=== PATIENT | male | born 1950 | race Caucasian/White ===

== ENCOUNTER → 2018-02-24 | Outpatient (CLI) | payer MEDICARE ==
[2018-02-24 10:09] LABS: Basophils % (A) 0 %; Eosinophils % (A) 0 %; HCT 48.5 % (39.0-53.0); HGB 16.7 gm/dL (13.0-17.5); Lymphocytes # (A) 2.2 k/uL (1.0-4.8); Lymphocytes % (A) 22 %; MCH 31.2 pg (25.0-35.0); MCHC 34.5 g/dL (31.0-37.0); MCV 90.5 fL (80.0-100.0); Mean Platelet Volume 7.3; Monocytes # (A) 0.7 k/uL (0-1.0); Monocytes % (A) 7 %; Neutrophils # (A) 7.1 k/uL (1.3-7.7); Neutrophils % (A) 69 %; Platelet Count 292 k/uL (150-450); RBC 5.36 m/uL (4.30-5.90); RDW 13.9 % (11.5-15.5); WBC 10.3 k/uL (3.8-10.6)
[2018-02-24 10:12] LABS: Appearance,Urine Clear (Clear); Bilirubin,Urine Negative (Negative); Blood,Urine Negative (Negative); Color,Urine Yellow; Glucose,Urine (UA) Negative (Negative); Ketones,Urine Negative (Negative); Leukocyte Esterase,Urine Negative (Negative); Nitrite,Urine Negative (Negative); PH, Urine 6.5 (5.0-8.0); Protein,Urine 1+ (Negative); RBC,Urine 2 /hpf (0-5); Specific Gravity,Urine 1.016 (1.001-1.035); Squamous Epithelial Cell,Urine <1 /hpf (0-4); Urobilinogen,Urine <2.0 mg/dL (<2.0); WBC,Urine 1 /hpf (0-5)
[2018-02-24 10:27] LABS: ALT 44 U/L (21-72); AST 28 U/L (17-59); Albumin 4.3 g/dL (3.5-5.0); Alkaline Phosphatase 80 U/L (38-126); Anion Gap 16 mmol/L; Blood Urea Nitrogen 23 mg/dL (9-20); Carbon Dioxide 23 mmol/L (22-30); Chloride 100 mmol/L (98-107); Glucose 232 mg/dL (74-99); Potassium 4.2 mmol/L (3.5-5.1); Sodium 139 mmol/L (137-145); Total Bilirubin 0.7 mg/dL (0.2-1.3); Total Protein 7.7 g/dL (6.3-8.2)
== END | disposition home or self-care (01) ==
LOC: LABPAT 09:18
PROVIDERS: ATTEND Urology
DX: Z01.818 Encounter for other preprocedural examination (principal); R94.31 Abnormal electrocardiogram [ECG] [EKG]; N20.0 Calculus of kidney; E11.9 Type 2 diabetes mellitus without complications; R31.29 Other microscopic hematuria; I10 Essential (primary) hypertension; Z01.812 Encounter for preprocedural laboratory examination
CPT/HCPCS: 36415; 80053; 81001; 85025; 86850; 86900; 86901; 87086; 93005

== ENCOUNTER 2018-03-02 06:29 | Day surgery (SDC) | payer MEDICARE ==
[2018-02-25 13:20] VITALS: BMI 30.4
[~2018-03-02 06:29] MED LIST: ceFAZolin 1,000 MG in DEXTROSE/WATER 1 50ML.BAG IVPB ONE
[2018-03-02] MEDS ORDERED: DEXAMETHASONE SOD PHOSPHATE 10 MG/ML 1 ML VIAL IV ONE (06:56)
[2018-03-02] MEDS ORDERED: LIDOCAINE 1% 20 ML VIAL (10MG/ML) FOR IV START INTRADERMA PRN (06:56)
[2018-03-02] MEDS ORDERED: ONDANSETRON 4 MG/2 ML VIAL IVP ONE (06:56)
[2018-03-02] MEDS: LACTATED RINGERS 1,000 ML IV SCH (07:38)
[2018-03-02] MEDS ORDERED: ONDANSETRON 4 MG/2 ML VIAL ONE ×2 (07:43→08:29)
[2018-03-02 08:01] LABS: Glucose,Whole Blood 128 mg/dL (75-99)
--- NOTE | 2018-03-02 08:14 | XR ---
EXAMINATION TYPE: XR KUB DATE OF EXAM: 03/02/2018 COMPARISON: NONE INDICATION: Preop kidney stones TECHNIQUE: Single view abdomen supine view FINDINGS: There is a normal bowel gas pattern. Psoas margins are normal. No organomegaly is present. There is prior aneurysm repair with stent present. Multiple large calcifications are present on the left with larger stones measuring 1.7 x 1.2 cm and 2 .5 x 0.9 cm. There is small calcification over the mid right kidney measuring 0.6 cm. Interspersed wi th fecal debris a second right renal stone may be present measuring 1.4 x 2.1 cm. IMPRESSION: 1. Multiple bilateral large renal stones with larger stones commented on above. 2. Prior aneurysm repair with stent placement.
[2018-03-02] MEDS ORDERED: MIDAZOLAM 2 MG/2 ML VIAL ONE (08:29)
[2018-03-02] MEDS ORDERED: KETOROLAC 30 MG/ML 1 ML VIAL ONE (08:29)
[2018-03-02] MEDS ORDERED: fentaNYL (PF) 50 MCG/ML 2 ML AMP ONE (08:29)
[2018-03-02] MEDS ORDERED: NEOSTIGMINE 1 MG/ML 10 ML VIAL ONE (08:29)
[2018-03-02] MEDS ORDERED: ROCURONIUM BROMIDE 10 MG/ML 10 ML VIAL IV ONE (08:29)
[2018-03-02] MEDS ORDERED: GLYCOPYRROLATE 0.2 MG/ML 2 ML VIAL ONE (08:29)
[2018-03-02] MEDS ORDERED: LIDOCAINE 1% INJ 10MG/ML (20 ML MDV) ONE (08:29)
[2018-03-02] MEDS ORDERED: DEXAMETHASONE SOD PHOS (MDV) 100 MG/10 ML VIAL ONE (08:29)
[2018-03-02] MEDS ORDERED: SUCCINYLCHOLINE CHLORIDE VIAL 200 MG/10 ML VIAL IV ONE (08:29)
[2018-03-02] MEDS ORDERED: PROPOFOL 10 MG/ML 20 ML VIAL IV ONE (08:29)
[2018-03-02] MEDS ORDERED: IOHEXOL 350 MG/ML (PER ML) 100ML BTL MISCELLANE ONE ×2 (08:44)
[2018-03-02] MEDS ORDERED: ONDANSETRON 4 MG/2 ML VIAL IVP PRN (09:58)
[2018-03-02] MEDS ORDERED: ACETAMINOPHEN TAB 325 MG TAB PO PRN (09:58)
[2018-03-02] MEDS ORDERED: MAG HYDROX/AL HYDROX/SIMETH 30 ML CUP PO PRN (09:58)
[2018-03-02] MEDS ORDERED: HYDROmorphone PCA 5 MG/25 ML SYRINGE IV PRN (10:00)
[2018-03-02] MEDS ORDERED: NALOXONE 0.4 MG/ML 1 ML VIAL IV PRN (10:00)
[2018-03-02] MEDS ORDERED: KETOROLAC 30 MG/ML 1 ML VIAL IVP PRN (10:00)
--- NOTE | 2018-03-02 10:07 | P.OP ---
Date of Procedure: 03/02/18 Preoperative Diagnosis: left renal stones large Postoperative Diagnosis: Same Procedure(s) Performed: Cystoscopy, placement of occluding balloon catheter left, percutaneous nephrostomy (Dr. Escalera) percutaneous nephrostolithotomy with ultrasound, 10- Sammarinese J nephrostomy tube Anesthesia: DARIELA Surgeon: Danny Wasserman Estimated Blood Loss (ml): 50 Pathology: other (Stone) Condition: stable Disposition: PACU Indications for Procedure: The patient is a 67-year-old gentleman with a large volume of left renal stones (3 cm). He comes for percutaneous nephrostolithotomy Description of Procedure: The patient is brought to the operating suite. He is given a successful general endotracheal anesthesia on the transport gurpaxton. He's placed in a frog position with a sterile prep and drape. Cystoscopy with a Foroblique lens and 19-Sammarinese sheath identifies a normal urethra. The prostate is not obstructing. The left ureteral orifice is identified and intubated with a 5-Sammarinese occluding balloon catheter is passed up in the renal pelvis. It is secured to a 16-Sammarinese Wagner catheter The patient is placed in a prone position with care to airways and extremities. Dr. Escalera of radiology enters the suite and performed percutaneous access to the left lower pole calyx. The track was dilated to 30-Sammarinese. I introduced the rigid scope into the collecting system through the working sheath. Multiple small calyceal fragments are removed of the left lower pole calyx. A large stone in the left lower pole calyx is identified and broken with the ultrasound and the large fragments are removed. I advanced the scope into the left renal pelvis and identify a second large renal stone that is broken with ultrasound and the largest fragments are removed. End of the procedure the collecting system is totally inspected with the flexible nephroscope and there are no remaining stones. A nephrostogram shows no remaining stones. A 10- Sammarinese J nephrostomy tube was placed the patient's awakened and returned recovery room good condition. Blood loss is approximately 50 mL.
--- NOTE | 2018-03-02 10:19 | FL ---
EXAMINATION TYPE: FL Perc Nephrostomy New Access DATE OF EXAM: 03/02/2018 COMPARISON: CT scan from outside institution HISTORY: Hydronephrosis, ureteral obstruction with staghorn calculus. PROCEDURE: Maximal barrier technique was utilized. The skin overlying the left kidney was localized using fluor oscopy and the overlying skin prepped and draped. Lidocaine used for local anesthesia. Skin francis wa s made with a scalpel. Access was gained under fluoroscopy, following placement of a ureteral occlus ion balloon by the referring clinician and instillation of air in the renal collecting system with a 21-gauge needle to the kidney. A suitable posterior calyx was chosen at the lower pole. A 0.018 in ch wire was advanced. 0.035 inch angled Glidewire and angled catheter were exchanged to select the ur eter. The access site was dilated and subsequently a sheath was advanced into the renal pelvis follo wing dilation with balloon along the tract. Urine returned in the hub of the catheter. The patient un derwent nephrolithotomy by the referring clinician. The patient remained in stable condition withou t complication. The patient was discharged to observation. IMPRESSION: STATUS POST NEPHROSTOMY PLACEMENT FOR NEPHROLITHOTOMY WITH FLUOROSCOPIC GUIDANCE. THIS PROCEDURE PER FORMED BY THE UNDERSIGNED.
[2018-03-02] MEDS: MORPHINE SULFATE 2 MG/ML SYRINGE IV PRN ×4 (10:25→10:43)
[2018-03-02] MEDS ORDERED: diphenhydrAMINE 50 MG/ML 1 ML VIAL IVP ONE (10:32)
[2018-03-02 10:47] LABS: Glucose,Whole Blood 174 mg/dL (75-99)
[2018-03-02] MEDS ORDERED: MEPERIDINE 50 MG/ML SYRINGE IVP ONE (10:47)
[2018-03-02] MEDS: SODIUM CHLORIDE 0.45% 1,000 ML IV SCH (12:14)
[2018-03-02] MEDS: metFORMIN 500 MG TAB PO SCH (20:29)
[2018-03-02] MEDS ORDERED: ATORVASTATIN 20 MG TAB PO SCH (21:00)
[2018-03-03] MEDS: SODIUM CHLORIDE 0.45% 1,000 ML IV SCH ×2 (00:35→12:29)
--- NOTE | 2018-03-03 06:48 | P.PN ---
Subjective Progress Note Date: 03/03/18 The patient is in first postoperative day from a percutaneous nephrostolithotomy. Patient's pain has been moderate requiring a GENERATION MANAGER. He finally control and early this morning. His urine is cleared nicely. Vital signs are stable. I will remove his Wagner. He will ambulate. Continue to monitor his pain today he feels he isn't too much pain to be discharged home. Objective - Vital Signs Vital signs: Vital Signs Temp 97.5 F L 03/03/18 00:34 Pulse 75 03/03/18 00:34 Resp 16 03/03/18 00:34 BP 132/80 03/03/18 00:34 Pulse Ox 97 03/03/18 00:34 Intake & Output 03/02/18 03/02/18 03/03/18 06:59 18:59 06:59 Intake Total 1700 262.5 Output Total 460 2955 Balance 1240 -2692.5 Weight 96.162 kg Intake: IV 1700 Intake, IV Titration 262.5 Amount Sodium Chloride 0.45% 1, 262.5 000 ml @ 75 mls/hr IV . [id number] FORMERLY [facility], 1928–1983 Rx#:[id number] Output: Drainage 200 1430 Left flank 200 1430 Urine 250 1525 Estimated Blood Loss 10 Other: Voiding Method Indwelling Catheter Indwelling Catheter - Labs Labs: Abnormal Lab Results - Last 24 Hours (Table) 03/02/18 03/02/18 Range/Units 07:25 10:41 POC Glucose (mg/dL) 128 H 174 H (75-99) mg/dL
[2018-03-03 07:03] LABS: Glucose,Whole Blood 146 mg/dL (75-99)
[2018-03-03 07:11] VITALS: BP 167/88; PULSE 81; RESP 14; TEMP 97.7
[2018-03-03] MEDS: metFORMIN 500 MG TAB PO SCH (07:14)
[2018-03-03] MEDS ORDERED: [UNRECOGNIZED DRUG - OTHER] PO SCH (09:00)
[2018-03-03] MEDS ORDERED: METOPROLOL SUCCINATE (ER) 25 MG TAB.ER.24H PO SCH (09:00)
[2018-03-03] MEDS ORDERED: LOSARTAN PO SCH (09:00)
[2018-03-03] MEDS ORDERED: HYDROCHLOROTHIAZIDE PO SCH (09:00)
[2018-03-03] MEDS ORDERED: LOSARTAN 50 MG TAB PO SCH (09:00)
[2018-03-03] MEDS ORDERED: HYDROCHLOROTHIAZIDE 12.5 MG CAP PO SCH (09:00)
[2018-03-03] MEDS: LACTATED RINGERS 1,000 ML IV SCH (09:11)
[2018-03-03 11:47] LABS: Glucose,Whole Blood 141 mg/dL (75-99)
[2018-03-03 15:29] LABS: Hemoglobin A1C 7.1 % (4.0-6.0)
== END 2018-03-03 15:10 | disposition home or self-care (01) ==
LOC: OR 06:29 → 3SUR 09:50 → OR 03-03 15:10
PROVIDERS: ATTEND Urology
DX: N13.2 Hydronephrosis with renal and ureteral calculous obstruction (principal); I25.10 Atherosclerotic heart disease of native coronary artery without angina pectoris; I10 Essential (primary) hypertension; Z87.891 Personal history of nicotine dependence; E11.9 Type 2 diabetes mellitus without complications; Z79.4 Long term (current) use of insulin; Z87.442 Personal history of urinary calculi; E78.5 Hyperlipidemia, unspecified; I71.4 Abdominal aortic aneurysm, without rupture; Z82.49 Family history of ischemic heart disease and other diseases of the circulatory system; Z79.82 Long term (current) use of aspirin; Z79.899 Other long term (current) drug therapy
CPT/HCPCS: 50081; 74485; 94760; 82365; 83036; 50432; 74018; C1769 ×6; C2628; C1729 ×4; C1894; J2250; J0330; J1200; J1100 ×2; J2710; Q9967; J2175; J2405; J2001; J3010; J1885; J2270; J1170; J2704; 86850; 86900; 86901

== ENCOUNTER 2018-10-18 06:41 | Day surgery (SDC) | payer MEDICARE ==
[2018-10-17 14:30] VITALS: BMI 31.2
[~2018-10-18 06:41] MED LIST changes: +DEXAMETHASONE SOD PHOSPHATE 10 MG/ML 1 ML VIAL IV ONE; +HYDROmorphone 0.5 MG/0.5 ML SYRINGE IVP PRN; +LACTATED RINGERS 1,000 ML IV SCH; +LIDOCAINE 1% 20 ML VIAL (10MG/ML) FOR IV START INTRADERMA PRN; +ONDANSETRON 4 MG/2 ML VIAL IVP ONE; +SCOPOLAMINE 1.5MG/72HR PATCH TRANSDERM ONE; -ceFAZolin 1,000 MG in DEXTROSE/WATER 1 50ML.BAG IVPB ONE
[2018-10-18 07:21] VITALS: TEMP 97.7
[2018-10-18 07:23] LABS: Glucose,Whole Blood 198 mg/dL (75-99)
[2018-10-18] MEDS ORDERED: PROPOFOL 10 MG/ML 20 ML VIAL IV ONE (07:55)
[2018-10-18] MEDS ORDERED: LIDOCAINE 1% INJ 10MG/ML (20 ML MDV) ONE (07:55)
[2018-10-18 08:22] VITALS: RESP 16
--- NOTE | 2018-10-18 08:25 | P.PCN ---
Date of Procedure: 10/18/18 Procedure(s) Performed: Procedure: Total colonoscopy. Preoperative diagnosis: Screening for neoplasia. Postoperative diagnosis: Diverticulosis with no evidence of acute diverticulitis , strictures, polyps or cancer. Preparation: HalfLytely prep. Sedation: Was provided by anesthesia. Brief clinical history: The patient is a 68-year-old male who is scheduled for this evaluation for screening for neoplasia age being his risk factor. His prior exam may have been around 9 years ago. The patient has no abdominal complaints, bleeding or anemia. Procedure: With the patient on his left lateral decubitus position and after informed consent and adequate sedation, the perianal area was inspected and it did not show any fissures or fistulas. There were no masses felt on digital rectal examination. The Olympus CFH 190L video colonoscope was then inserted in the rectum in the usual fashion and advanced to the cecum. The mucosa appeared healthy. No polyps or tumors were seen. Several diverticular orifices were seen scattered on both the left and right side with no evidence of acute diverticulitis or strictures. I retroflexed the endoscope in the rectum before the endoscope was withdrawn. The patient tolerated the procedure well. Plan: The patient was reassured. Discussed dietary measures. He will follow up with you as planned and I recommended repeat exam in 10 years depending on his overall health at that time.
[2018-10-18 08:30] VITALS: BP 131/79; PULSE 69
[2018-10-18 08:34] LABS: Glucose,Whole Blood 183 mg/dL (75-99)
== END 2018-10-18 09:01 | disposition home or self-care (01) ==
LOC: ORWHC2ENDO 06:41
DX: Z12.11 Encounter for screening for malignant neoplasm of colon (principal); K57.30 Diverticulosis of large intestine without perforation or abscess without bleeding; E11.9 Type 2 diabetes mellitus without complications; I10 Essential (primary) hypertension; E78.5 Hyperlipidemia, unspecified; M19.90 Unspecified osteoarthritis, unspecified site; N40.0 Benign prostatic hyperplasia without lower urinary tract symptoms; Z79.82 Long term (current) use of aspirin; Z79.899 Other long term (current) drug therapy; Z88.8 Allergy status to other drugs, medicaments and biological substances; Z91.048 Other nonmedicinal substance allergy status; Z86.718 Personal history of other venous thrombosis and embolism; Z87.442 Personal history of urinary calculi
CPT/HCPCS: J2001; J2704; G0121

== ENCOUNTER → 2019-08-24 | Outpatient (CLI) | payer MEDICARE ==
--- NOTE | 2019-08-24 09:33 | US ---
EXAMINATION TYPE: US scrotum with doppler. Grayscale and color Doppler Duplex imaging performed of martha varela scrotum. DATE OF EXAM: 08/24/2019 COMPARISON: NONE CLINICAL HISTORY: N50.82 SCROTAL PAIN. Left side pain and swelling. Patient states he was trying to removed a bolt over the weekend and strained himself. EXAM MEASUREMENTS: TESTICLES: Right Testicle: 4.9 x 3.0 x 2.9 cm Left Testicle: 3.4 x 3.0 x 3.7 cm EPIDIDYMIS HEAD: Right Epididymis: 1.1 x 0.9 x 0.8 cm Left Epididymis: 0.9 x 1.0 x 1.1 cm Doppler performed to assess for testicular vascularity; good bilateral color flow and waveforms are s een. There is no evidence of testicular torsion. Presence of hydroceles: Small to Moderate left with debris visualized. Presence of varicoceles: No Left lateral complex lesion visualized adjacent to epididymis and teste, unable to accurately determi ne origin - 2.2 x 2.6 x 2.5 cm. Left groin visualized with possible inguinal hernia- valsalva perform ed. Color images show satisfactory blood flow to both testicles. There is asymmetric fairly moderate-size d left scrotal fluid collection or hydrocele. Left groin hernia suspected superior to the testicle. C omparison images were sent the study shows symmetric blood flow. IMPRESSION: Asymmetric moderate-sized left scrotal fluid collection or hydrocele. Suspect left groin inguinal hernia. Consider CT confirmation. Advise surgical referral.
== END | disposition home or self-care (01) ==
LOC: RADUSWWP 08:14
PROVIDERS: ATTEND Family Medicine
DX: N50.82 Scrotal pain (principal)
CPT/HCPCS: 76870; 93975

== ENCOUNTER → 2019-08-30 | Outpatient (CLI) | payer MEDICARE ==
[2019-08-30 09:56] LABS: African American GFR (CKD) >90 (>60 ml/min/1.73 sqM); Blood Urea Nitrogen 19 mg/dL (9-20)
--- NOTE | 2019-08-30 11:24 | CT ---
"EXAMINATION TYPE: CT pelvis w con DATE OF EXAM: 08/30/2019 COMPARISON: CT abdomen and pelvis June 02, 2011. Scrotal ultrasound 6 days ago. HISTORY: Lt groin hernia. Left scrotal and groin pain. CT DLP: 1042.7 mGycm Automated exposure control for dose reduction was used. CONTRAST: CT pelvis Performed with oral and with IV Contrast, patient injected with 100 mL of Isovue 300. FINDINGS: Partial visualization of renal calculi mid to lower pole of both kidneys with relatively roughly 3-4 calculi bilaterally, largest left kidney, coronal image 35 measuring 6 mm. Satisfactory excretion wit hout hydronephrosis. No intraluminal calculi in the bladder. Oral contrast reaches level of the mid to distal left colon. No suspicious small or large bowel dilat ation. Diverticula in the sigmoid colon without CT evidence for acute diverticulitis. There is aortobiiliac stent graft which is patent through AAA measuring up to 5.0 cm axial image 15. 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 There is patent bifemoral gr aft. Surgical scarring anterior groin region bilaterally. Small fat-containing right inguinal hernia. No left-sided hernia. No suspicious groin adenopathy. Redemonstration of small to moderate-sized left scrotal fluid collection or hydrocele. Incidental inc reased hyperdensity to left testicle versus opposite right testicle as well as left-sided epididymis. Hyperdense tubular shaped structure superior to this correlates with ultrasound could reflect epidid ymal prominence or prominent vas deferens. IMPRESSION: Increased hyperdense prominence to left testicle and epididymis could reflect increased v ascular flow or acute epididymitis/orchitis. Correlate clinically. No suspicious left groin hernia or adenopathy. A Yellow level critical message alert has been initiated for Farideh Howe DO via the [employer] 36 0 | Critical Results System on 08/30/2019 11:19 AM. This message alert has been sent to Farideh teixeira DO via the preferences provided by the clinician for the receipt of Radiology Critical Findings. Reece essage ID [id number]."
== END | disposition home or self-care (01) ==
LOC: RADCTMAIN 07:44
PROVIDERS: ATTEND Family Medicine
DX: R93.89 Abnormal findings on diagnostic imaging of other specified body structures (principal); N50.82 Scrotal pain
CPT/HCPCS: 82565; 84520; 72193; 36415; Q9967 ×2

== ENCOUNTER → 2020-09-30 | Outpatient (CLI) | payer MEDICARE ==
[2020-09-30 11:32] VITALS: BP 162/96; PULSE 85; RESP 18; TEMP 98.4
--- NOTE | 2020-09-30 12:18 | P.PAINCN ---
History of Present Illness - Reason for Consult Consult date: 09/30/20 - History of Present Illness This is a 70-year-old patient with neck pain with radiation into the shoulders. The patient Dr. Hernandez'vazqeuz. His primary complaint is bilateral neck pain with occasional radiation into the shoulder. Since the pain is described as sharp and stabbing only alleviated by sitting down and relaxing. Pain in general is worse with movement or lifting. Overall he does not endorse any weakness in his upper extremities. Pain is currently a 9 out of 10, at its worst a 10 out of 10, at its best a 5 out of 10. In terms of management he has tried Biofreeze, heat, and physical therapy but these did not help very much. He recently had some type of medial branch block in June 2020 which helped for 1-5 days. He is also had an ACDF of C4 through C7 in 2009. This to help with this pain back then, however his pain is now come back and he would like to avoid surgery. He is also mention that he has had ablations in his lumbar spine, however he does not have any records of these. Patient denies adverse drug effects from medications. Patient also denies new- onset weakness, bowel/bladder incontinence, or any other signs or symptoms of cauda equina syndrome. There are no signs of acute intoxication, and no indications of medication diversion or overuse. In addition to above, 13-point review of systems is also negative for chest pain, shortness of breath, changes in vision, changes in hearing, new onset weakness, abdominal pain, diarrhea, extreme fatigue, malaise, fever, skin changes, homicidal or suicidal ideation, or bowel or bladder incontinence. Physical exam: Vital Signs: Reviewed in EMR GENERAL: Well appearing, in no acute distress PSYCH: Mood and affect is appropriate. Awake, alert, and oriented SKIN: Skin color, texture, turgor normal, no rashes or lesions HEENT: Normocephalic, atraumatic. EOM intact CV: No pedal edema RESP: Respirations are unlabored, no audible wheezing GI: Abdomen non-distended MUSCULOSKELETAL: Bilateral upper and lower extremity strength is normal and symmetric. No atrophy or tone abnormalities are noted. Neck: pain to palpation over the cervical paraspinous muscles. Spurling negative, Axial Loading Test positive, Childs's sign negative. pain with neck flexion, extension, or lateral flexion. No obvious deformity or signs of trauma. Normal cervical lordotic curve and decreased cervical spine range of motion Extremities: Peripheral joint ROM is full and pain free without obvious instability or laxity in all four extremities. No edema or skin discolorations noted. Gait: Gait is normal NEUR: Bilateral upper and lower extremity coordination and muscle stretch reflexes are physiologic and symmetric. Negative clonus. No loss of sensation is noted. Cranial nerves are grossly intact. Assessment: 1. Cervical facet arthropathy 2. Lumbar facet arthropathy Plan: 1. Explanation: Diagnoses, prognoses, and multiple treatment options including but not limited to physical therapy, interventional therapies, medication management and surgery were discussed with the patient and all questions were answered to the patient's satisfaction. 2. Investigations: none 3. Counseling: The patient was counseled for 3 minutes on SMOKING CESSATION, BODY MASS INDEX, EXERCISE. Specifically, the patient was instructed regarding the importance of smoking cessation, weight control, and exercise in the context of both chronic pain and overall health. 4. Procedures: We will proceed with medial branch block of C2-C3 and C3-C4, I'm unsure what O Michaela Hernandez, however given that he is a fusion from C4 through C7 is unlikely that anatomically we would able to see anything at those levels. 5. Consultations: none 6. Medications: Continue home tylenol 7. Disposition: bilateral MBB C2-C3 and C3-C4 Past Medical History Past Medical History: Diabetes Mellitus, Deep Vein Thrombosis (DVT), Hearing Disorder / Deafness, Hyperlipidemia, Hypertension, Osteoarthritis (OA) Additional Past Medical History / Comment(s): Hx kidney stones, aortic anerysym with sx, calcium deposits on pancreas History of Any Multi-Drug Resistant Organisms: None Reported Past Surgical History: Cholecystectomy, Orthopedic Surgery Additional Past Surgical History / Comment(s): Surgery for Aortic anerysym with stent placement and femoral bypass surgery with stent placement 01/2015. Neck fusion, tube placed in right ear. Orthopedic surgery to right knee. lithotripsy, sx to remove kidney stones 2017, had one procedure @ [facility] to "burn nerves" Past Anesthesia/Blood Transfusion Reactions: No Reported Reaction Past Psychological History: No Psychological Hx Reported Smoking Status: Former smoker Past Alcohol Use History: Occasional Additional Past Alcohol Use History / Comment(s): Smoked 1 PPD for 35-40 yrs, quit in 2014 Past Drug Use History: None Reported - Past Family History Mother Family Medical History: Cancer Additional Family Medical History / Comment(s): Breast cancer Medications and Allergies Home Medications Medication Instructions Recorded Confirmed Type Aspirin [Adult Low Dose Aspirin EC] 81 mg PO DAILY 01/22/17 09/27/20 History Metoprolol Succinate (ER) [Toprol 25 mg PO QAM 01/22/17 09/27/20 History Xl] Multivitamin [Men's Multi-Vitamin] 1 each PO DAILY 01/22/17 09/27/20 History Losartan/Hydrochlorothiazide 1 each PO QAM 02/25/18 09/27/20 History [Losartan-Hctz 100-12.5 mg Tab] Rosuvastatin [Crestor] 10 mg PO DAILY 10/17/18 09/27/20 History sitaGLIPtin PHOSPHATE [Januvia] 100 mg PO DAILY 10/17/18 09/27/20 History Acetaminophen [Tylenol Arthritis] 650 mg PO DIRECTED PRN 09/27/20 09/27/20 History Empagliflozin [Jardiance] 25 mg PO DAILY 09/27/20 09/27/20 History Allergies Allergy/AdvReac Type Severity Reaction Status Date / Time adhesive tape Allergy rash,weeping Verified 09/30/20 11:38 skin metformin Allergy abdominal Verified 09/30/20 11:38 cramping and diarrhea simvastatin [From Zocor] Allergy severe leg Verified 09/30/20 11:38 pain fenofibrate AdvReac diarrhea, Verified 09/30/20 11:38 severe aches gabapentin AdvReac diarrhea,severe Verified 09/30/20 11:38 aches cats Allergy sneezing,coughing,itchy/watery Uncoded 09/30/20 11:38 eyes PQRS Measure Charge Sheet PQRS Narrative: Smoking Status Former smoker Pain Intensity [Back] 2 Scale Used Numeric (1 - 10) Home Medications: Ambulatory Orders Aspirin [Adult Low Dose Aspirin EC] 81 mg PO DAILY 01/22/17 Metoprolol Succinate (ER) [Toprol Xl] 25 mg PO QAM 01/22/17 Multivitamin [Men's Multi-Vitamin] 1 each PO DAILY 01/22/17 Losartan/Hydrochlorothiazide [Losartan-Hctz 100-12.5 mg Tab] 1 each PO QAM 02/25/18 Rosuvastatin [Crestor] 10 mg PO DAILY 10/17/18 sitaGLIPtin PHOSPHATE [Januvia] 100 mg PO DAILY 10/17/18 Acetaminophen [Tylenol Arthritis] 650 mg PO DIRECTED PRN 09/27/20 Empagliflozin [Jardiance] 25 mg PO DAILY 09/27/20
== END | disposition home or self-care (01) ==
LOC: PNWHC3 11:03
PROVIDERS: ATTEND Anesthesiology
DX: M47.892 Other spondylosis, cervical region (principal); M47.896 Other spondylosis, lumbar region; E11.9 Type 2 diabetes mellitus without complications; E78.5 Hyperlipidemia, unspecified; I10 Essential (primary) hypertension; M19.90 Unspecified osteoarthritis, unspecified site; I82.409 Acute embolism and thrombosis of unspecified deep veins of unspecified lower extremity; Z79.899 Other long term (current) drug therapy; Z79.82 Long term (current) use of aspirin; Z79.891 Long term (current) use of opiate analgesic; Z88.8 Allergy status to other drugs, medicaments and biological substances; Z91.09 Other allergy status, other than to drugs and biological substances; Z88.5 Allergy status to narcotic agent; Z87.891 Personal history of nicotine dependence
CPT/HCPCS: 99211

== ENCOUNTER 2021-01-03 07:39 | Day surgery (SDC) | payer MEDICARE ==
[2021-01-01 08:56] VITALS: BMI 31.8
[~2021-01-03 07:39] MED LIST changes: -DEXAMETHASONE SOD PHOSPHATE 10 MG/ML 1 ML VIAL IV ONE; -HYDROmorphone 0.5 MG/0.5 ML SYRINGE IVP PRN; -LIDOCAINE 1% 20 ML VIAL (10MG/ML) FOR IV START INTRADERMA PRN; -ONDANSETRON 4 MG/2 ML VIAL IVP ONE; -SCOPOLAMINE 1.5MG/72HR PATCH TRANSDERM ONE
[2021-01-03 07:56] VITALS: TEMP 97.2
[2021-01-03] MEDS ORDERED: LACTATED RINGERS 1,000 ML IV ONE (08:02)
[2021-01-03] MEDS ORDERED: IV FLUID CONTINUATION 1,000 ML IV ONE (08:02)
[2021-01-03 08:05] LABS: Glucose,Whole Blood 155 mg/dL (75-99)
[2021-01-03] MEDS ORDERED: MIDAZOLAM 2 MG/2 ML VIAL ONE (08:11)
[2021-01-03] MEDS ORDERED: IOPAMIDOL M200 10 ML VIAL ONE (08:11)
[2021-01-03] MEDS ORDERED: ROPIVACAINE 5MG/ML 20ML VIAL ONE (08:11)
[2021-01-03] MEDS ORDERED: TRIAMCINOLONE ACETONIDE 40 MG/ML 1 ML VIAL ONE (08:11)
[2021-01-03] MEDS ORDERED: fentaNYL (PF) 50 MCG/ML 2 ML AMP ONE (08:11)
--- NOTE | 2021-01-03 08:32 | P.PCN ---
Date of Procedure: 01/03/21 Description of Procedure: PREOPERATIVE DIAGNOSIS : Cervicalgia with Facet Arthropathy without myelopathy POSTOPERATIVE DIAGNOSIS: same PROCEDURE: first Diagnostic cervical medial branch block with fluoroscopy at TON, C3, C4 [bilateral] which covers facets C2-C3 and C3-C4 ANESTHESIA: Local anesthetic; moderate IV sedation with Versed and fentanyl, sedation time 13 min Fluoroscopy was used for the procedure and images were saved in the radiology portion of the chart. Surgeon: Andre Lee MD PROCEDURE INDICATION: Cervical pain without radiculopathy, not responsive to conservative management. PROCEDURE DESCRIPTION: the patient was seen and identified in the preop holding area , risks and benefits and possible complications of the procedure and alternatives were discussed with the patient, and the patient agreed to proceed with the procedure and signed the consent . IV was started , vital signs were monitored during the procedure and fluoroscopy was used to maximize the benefit and accuracy of the needle placement, and sedation was given to decrease patient anxiety. Patient was taken to the procedure room and placed in prone position. An AP fluoroscopic rn documentation specialist film was taken to identify the dens, the C2, C3, C4 vertebral bodies, and the waists of the articular pillars at the aforementioned levels. A lateral view was utilized to highlight the waists of the articular pillars at these levels. The skin was prepped with chlorhexidine and draped in the usual sterile fashion. The skin and subcutaneous tissue overlying the above levels were anesthetized using a 25-gauge 1-1/2-inch needle with 1% preservative free lidocaine for a total volume of 1 ml per level. An AP fluoroscopic rn documentation specialist film was taken to identify the dens, the C2 C3 C4 vertebral bodies, and the center of the centroid at the aforementioned levels. A lateral view was utilized to highlight the centroids at these levels. The skin was prepped with chlorhexidine and draped in the usual sterile fashion. The skin and subcutaneous tissue overlying the above levels were anesthetized using a 25-gauge 1-1/2-inch needle with 1% preservative free lidocaine for a total volume of 1 ml per level. An 25-gauge 3.5" Quinke needle was advanced, coaxially, in the lateral view until the needle tip was noted to slide into the center of the centroid. The needles were advanced until bony contact was felt and the tip of the Quinke needle was confirmed to be in the center of the articular pillars at the aforementioned levels. For TON and C3, there was adequate contrast spread with one injection, hence i was able to cover both nerves with one injection bilaterally. 0.2 mL of Isovue 200 per level was injected which revealed no vascular uptake and after negative aspiration, a mixture 0.5 mL of ropivacaine along with Kenalog 40 mg (injectate total for the procedure was 4 mL) was injected at each level and the needle subsequently removed . Total of 40 mg kenalog used. At the end of the procedure and the needles were removed and a bandage applied after the skin was cleaned. The patient was taken to recovery room in stable condition and monitors in the recovery room for 20-30 minutes and discharged home in stable condition after discharge criteria met and patient will follow up in clinic in 2 weeks EBL: Minimal COMPLICATION: None.
[2021-01-03 09:01] VITALS: BP 118/74; PULSE 84; RESP 16
--- NOTE | 2021-01-03 14:28 | FL ---
Fluoroscopy INDICATION: Pain FINDINGS: Fluoroscopy time: 9 seconds. Images obtained: 4. IMPRESSIONS: 1. Documentation of fluoroscopy.
== END 2021-01-03 09:07 | disposition home or self-care (01) ==
LOC: ORPAIN 07:39
PROVIDERS: ATTEND Anesthesiology
DX: M47.812 Spondylosis without myelopathy or radiculopathy, cervical region (principal); I10 Essential (primary) hypertension; E78.5 Hyperlipidemia, unspecified; I73.9 Peripheral vascular disease, unspecified; E11.9 Type 2 diabetes mellitus without complications; Z86.718 Personal history of other venous thrombosis and embolism; Z91.048 Other nonmedicinal substance allergy status; Z88.8 Allergy status to other drugs, medicaments and biological substances; M19.90 Unspecified osteoarthritis, unspecified site; Z79.82 Long term (current) use of aspirin; Z79.84 Long term (current) use of oral hypoglycemic drugs; Z79.899 Other long term (current) drug therapy
CPT/HCPCS: 64490; 64491; J2250; J3301; J3010; Q9966; J2795; 99152

== ENCOUNTER → 2021-01-22 | Outpatient (CLI) | payer MEDICARE ==
--- NOTE | 2021-01-22 09:40 | P.PAINPG ---
Subjective Progress Note Date: 01/22/21 This is a 70-year-old patient with neck pain with radiation into the shoulders. The patient Dr. Hernandez's past patient. His primary complaint is bilateral neck pain with occasional radiation into the shoulder. Since the pain is described as sharp and stabbing only alleviated by sitting down and relaxing. Pain in general is worse with movement or lifting. Overall he does not endorse any weakness in his upper extremities. Pain is currently a 9 out of 10, at its worst a 10 out of 10, at its best a 5 out of 10. In terms of management he has tried Biofreeze, heat, and physical therapy but these did not help very much. He recently had some type of medial branch block in June 2020 which helped for 1-5 days. He is also had an ACDF of C4 through C7 in 2009. He is also mention that he has had ablations in his lumbar spine, however he does not have any records of these.We proceeded with TON, C3, C4 MBB bilaterally. He notes that he had 100% relief from the last procedure for about 2-3 days. He noticed that his functionality was significantly improved and he was able to show also no without any issue. Pain has returned and is in the same region currently a 5 out of 10, at its worst a 9 out of 10, at best a 4 out of 10. He is just using ice and heat at this moment and would like to repeat the medial branch block. He is familiar with the concept radiofrequency ablation as he had them on his back in the past. Patient denies adverse drug effects from medications. Patient also denies new- onset weakness, bowel/bladder incontinence, or any other signs or symptoms of cauda equina syndrome. There are no signs of acute intoxication, and no indications of medication diversion or overuse. In addition to above, 13-point review of systems is also negative for chest pain, shortness of breath, changes in vision, changes in hearing, new onset weakness, abdominal pain, diarrhea, extreme fatigue, malaise, fever, skin changes, homicidal or suicidal ideation, or bowel or bladder incontinence. Physical exam: Vital Signs: Reviewed in EMR GENERAL: Well appearing, in no acute distress PSYCH: Mood and affect is appropriate. Awake, alert, and oriented SKIN: Skin color, texture, turgor normal, no rashes or lesions HEENT: Normocephalic, atraumatic. EOM intact CV: No pedal edema RESP: Respirations are unlabored, no audible wheezing GI: Abdomen non-distended MUSCULOSKELETAL: Bilateral upper and lower extremity strength is normal and symmetric. No atrophy or tone abnormalities are noted. Neck: pain to palpation over the cervical paraspinous muscles. Spurling negative, Axial Loading Test positive, Childs's sign negative. pain with neck flexion, extension, or lateral flexion. No obvious deformity or signs of trauma. Normal cervical lordotic curve and decreased cervical spine range of motion Extremities: Peripheral joint ROM is full and pain free without obvious instability or laxity in all four extremities. No edema or skin discolorations noted. Gait: Gait is normal NEUR: Bilateral upper and lower extremity coordination and muscle stretch reflexes are physiologic and symmetric. Negative clonus. No loss of sensation is noted. Cranial nerves are grossly intact. Assessment: 1. Cervical facet arthropathy 2. Lumbar facet arthropathy Plan: 1. Explanation: Diagnoses, prognoses, and multiple treatment options including but not limited to physical therapy, interventional therapies, medication management and surgery were discussed with the patient and all questions were answered to the patient's satisfaction. 2. Investigations: none 3. Counseling: We did discuss the concept of repeating medial branch blocks and proceed with radiofrequency ablation. 4. Procedures: We will proceed with medial branch block of C2-C3 and C3-C4. #2 5. Consultations: none 6. Medications: Continue home tylenol 7. Disposition: bilateral MBB C2-C3 and C3-C4 PQRS Measure Charge Sheet PQRS Narrative: Smoking Status Former smoker Pain Intensity [Generalized] 0 Hx Alcohol Use (MH) No Home Medications: Ambulatory Orders Aspirin [Adult Low Dose Aspirin EC] 81 mg PO DAILY 01/22/17 Metoprolol Succinate (ER) [Toprol Xl] 25 mg PO QAM 01/22/17 Multivitamin [Men's Multi-Vitamin] 1 each PO DAILY 01/22/17 Losartan/Hydrochlorothiazide [Losartan-Hctz 100-12.5 mg Tab] 1 each PO QAM 02/25/18 Rosuvastatin [Crestor] 10 mg PO DAILY 10/17/18 sitaGLIPtin PHOSPHATE [Januvia] 100 mg PO DAILY 10/17/18 Acetaminophen [Tylenol Arthritis] 650 mg PO DIRECTED PRN 09/27/20 Empagliflozin [Jardiance] 25 mg PO DAILY 09/27/20 Controlled Substance Measures - Controlled Substance Measures Is patient prescribed a controlled substance at discharge?: No
== END ==
CPT/HCPCS: 99211

== ENCOUNTER 2021-02-28 08:22 | Day surgery (SDC) | payer MEDICARE ==
[2021-02-26 15:32] VITALS: BMI 31.2
[2021-02-28 08:50] VITALS: TEMP 98.5
[2021-02-28 08:55] LABS: Glucose,Whole Blood 151 mg/dL (75-99)
[2021-02-28] MEDS ORDERED: LACTATED RINGERS 1,000 ML IV ONE (09:04)
[2021-02-28] MEDS ORDERED: LIDOCAINE 1% (10MG/ML) FOR IV START INTRADERMA ONE (09:05)
[2021-02-28] MEDS ORDERED: ROPIVACAINE 5MG/ML 20ML VIAL ONE (09:35)
[2021-02-28] MEDS ORDERED: IOPAMIDOL M200 10 ML VIAL ONE (09:35)
[2021-02-28] MEDS ORDERED: DEXAMETHASONE SOD PHOSPHATE 10 MG/ML 1 ML VIAL ONE (09:35)
[2021-02-28] MEDS ORDERED: MIDAZOLAM 2 MG/2 ML VIAL ONE (09:36)
[2021-02-28] MEDS ORDERED: fentaNYL (PF) 50 MCG/ML 2 ML AMP ONE (09:36)
--- NOTE | 2021-02-28 09:49 | P.PCN ---
Date of Procedure: 02/28/21 Description of Procedure: PREOPERATIVE DIAGNOSIS : Cervicalgia with Facet Arthropathy without myelopathy POSTOPERATIVE DIAGNOSIS: same PROCEDURE: first Diagnostic cervical medial branch block with fluoroscopy at TON, C3, C4 [bilateral] which covers facets C2-C3 and C3-C4 #2 ANESTHESIA: Local anesthetic; moderate IV sedation with Versed and fentanyl, Fluoroscopy was used for the procedure and images were saved in the radiology portion of the chart. Surgeon: Andre Lee MD PROCEDURE INDICATION: Cervical pain without radiculopathy, not responsive to conservative management. PROCEDURE DESCRIPTION: the patient was seen and identified in the preop holding area , risks and benefits and possible complications of the procedure and alternatives were discussed with the patient, and the patient agreed to proceed with the procedure and signed the consent . IV was started , vital signs were monitored during the procedure and fluoroscopy was used to maximize the benefit and accuracy of the needle placement, and sedation was given to decrease patient anxiety. Patient was taken to the procedure room and placed in prone position. An AP fluoroscopic sheet ironworker film was taken to identify the dens, the C2, C3, C4 vertebral bodies, and the waists of the articular pillars at the aforementioned levels. A lateral view was utilized to highlight the waists of the articular pillars at these levels. The skin was prepped with chlorhexidine and draped in the usual sterile fashion. The skin and subcutaneous tissue overlying the above levels were anesthetized using a 25-gauge 1-1/2-inch needle with 1% preservative free lidocaine for a total volume of 1 ml per level. An AP fluoroscopic sheet ironworker film was taken to identify the dens, the C2 C3 C4 vertebral bodies, and the center of the centroid at the aforementioned levels. A lateral view was utilized to highlight the centroids at these levels. The skin was prepped with chlorhexidine and draped in the usual sterile fashion. The skin and subcutaneous tissue overlying the above levels were anesthetized using a 25-gauge 1-1/2-inch needle with 1% preservative free lidocaine for a total volume of 1 ml per level. An 25-gauge 3.5" Quinke needle was advanced, coaxially, in the lateral view until the needle tip was noted to slide into the center of the centroid. The needles were advanced until bony contact was felt and the tip of the Quinke needle was confirmed to be in the center of the articular pillars at the aforementioned levels. For TON and C3, there was adequate contrast spread with one injection, hence i was able to cover both nerves with one injection bilaterally. 0.2 mL of Isovue 200 per level was injected which revealed no vascular uptake and after negative aspiration, a mixture 0.5 mL of ropivacaine along with Kenalog 40 mg (injectate total for the procedure was 4 mL) was injected at each level and the needle subsequently removed . Total of 40 mg kenalog used. At the end of the procedure and the needles were removed and a bandage applied after the skin was cleaned. The patient was taken to recovery room in stable condition and monitors in the recovery room for 20-30 minutes and discharged home in stable condition after discharge criteria met and patient will follow up in clinic in 2 weeks EBL: Minimal COMPLICATION: None.
[2021-02-28] MEDS ORDERED: IV FLUID CONTINUATION 1,000 ML IV ONE (09:55)
[2021-02-28 10:15] VITALS: BP 136/69; PULSE 80; RESP 16
--- NOTE | 2021-03-02 16:47 | FL ---
EXAMINATION TYPE: FL guided pain mgmt statistic DATE OF EXAM: 02/28/2021 FLUOROSCOPY Fluoroscopy time of 8 seconds was used during cervical spine facet block injection. 3 image/s docume nt/s the procedure.
== END 2021-02-28 10:24 | disposition home or self-care (01) ==
LOC: ORPAIN 08:22
PROVIDERS: ATTEND Anesthesiology
DX: M47.812 Spondylosis without myelopathy or radiculopathy, cervical region (principal); I10 Essential (primary) hypertension; E78.5 Hyperlipidemia, unspecified; Z86.718 Personal history of other venous thrombosis and embolism; E11.9 Type 2 diabetes mellitus without complications; M19.90 Unspecified osteoarthritis, unspecified site; F32.9 Major depressive disorder, single episode, unspecified; Z79.84 Long term (current) use of oral hypoglycemic drugs; Z79.82 Long term (current) use of aspirin; Z79.899 Other long term (current) drug therapy; Z88.8 Allergy status to other drugs, medicaments and biological substances; Z91.048 Other nonmedicinal substance allergy status; Z91.09 Other allergy status, other than to drugs and biological substances
CPT/HCPCS: 64490; 64491; J2250; J1100; J3010; Q9966; J2795

== ENCOUNTER → 2021-03-17 | Outpatient (CLI) | payer MEDICARE ==
[2021-03-17 10:25] VITALS: BP 145/78; PULSE 83; RESP 18; TEMP 97.7
--- NOTE | 2021-03-17 10:30 | P.PN ---
Subjective Progress Note Date: 03/17/21 This is a follow-up visit for this 70 years old male with a chronic history of severe neck pain and low back pain, he is diagnosed with cervical spondylosis, cervical facet arthropathy and lumbar spondylosis with lumbar facet arthropathy, previously he had RFA of the medial branch lumbar area at L2, L3 ,L4 ,L5 was done at [facility], and he gets good pain relief, recently we have done diagnostic medial branch block cervical area at C2 3, C3 4, x2 , patient did 100% relief of his neck pain after the first diagnostic block his VAS was 3- 4/10 to the block and dropped to 0/10 after the block, and his VAS before the second diagnostic medial branch block was 5/10, up to 1/10 after the second diagnostic medial branch block, the pain in the cervical area is constant and increases with any activity, as any motor or sensory deficit he denies any fever or night sweats Objective - Exam Physical Examinations : -Constitutiona : Cooperative , not in acute distress . -HEENT : nech : supple , no Lymphadenopathy , normal thyroid size . : eyes : no ptosis , no icterus, no photophobia . - neurologic : Cranial nerve II to XII intact , no focal neurological deffecit . -psychatric : alert , oriented X 3 , appropriate affect , intact judgment and insight . -Lymphatic : no Lymphadenopathy . - musculoskeltal : Cervical Spine motor stregnth in the deltoid and biceps, normal right side , normal Left side motor stregnth biceps and the wrist extensors normal right side ,normal left side . motor stregnth in the triceps muscle . normal Right side , normal Left side deep tendon reflexes normal at the biceps , normal at Brachioradialis , normal at triceps. cervical facet loading test: Positive Bilaterally Lumber spine moter stegnth lower extremities ,thigh and legs 5/5 Right side , 5/5 Left side deep tendon reflexes : normal Knee Jerk , normal ankle Jerk lumber facet Loading Test =positive Right , positive Left Range of motion of the lumbar spine Flexion 30 degrees, extension 10 degrees strait leg raising test = positive at 45 degree Fabere test= positive Right , and positive LT . tenderness over the Sacroiliac joint on the Right , and Left sides Assessment and Plan Plan: Assessment and plan=1-cervical spondylosis with cervical facet arthropathy 2-lumbar spondylosis with lumbar facet arthropathy. Patient gets more than 80% improvement of his neck pain after the diagnostic medial branch block cervical area, would be good candidate RFA of the medial branch at C2 3, C3 4 bilaterally. Future patient could benefit from repeate RFA medial branch lumbar area L3,L4 ,L5 bilaterally Time with Patient: Less than 30
== END ==
LOC: PNWHC3 09:31
PROVIDERS: ATTEND Specialist
DX: M47.812 Spondylosis without myelopathy or radiculopathy, cervical region (principal); M47.816 Spondylosis without myelopathy or radiculopathy, lumbar region; Z87.891 Personal history of nicotine dependence
CPT/HCPCS: 99211

== ENCOUNTER 2021-04-18 07:12 | Day surgery (SDC) | payer MEDICARE ==
[2021-04-17 10:57] VITALS: BMI 31.5
[2021-04-18] MEDS ORDERED: LIDOCAINE 1% (10MG/ML) FOR IV START INTRADERMA ONE (07:50)
[2021-04-18] MEDS ORDERED: LACTATED RINGERS 1,000 ML IV ONE (07:50)
[2021-04-18 07:53] VITALS: RESP 16; TEMP 97.5
[2021-04-18 07:53] LABS: Glucose,Whole Blood 147 mg/dL (75-99)
[2021-04-18] MEDS ORDERED: MIDAZOLAM 2 MG/2 ML VIAL ONE (07:55)
[2021-04-18] MEDS ORDERED: fentaNYL (PF) 50 MCG/ML 2 ML AMP ONE (07:55)
[2021-04-18] MEDS ORDERED: LIDOCAINE 1% INJ 10MG/ML (20 ML MDV) ONE (07:55)
[2021-04-18] MEDS ORDERED: ROPIVACAINE 5MG/ML 20ML VIAL ONE (07:55)
[2021-04-18] MEDS ORDERED: IV FLUID CONTINUATION 1,000 ML IV ONE (08:29)
--- NOTE | 2021-04-18 08:34 | FL ---
EXAMINATION TYPE: FL guided pain mgmt statistic DATE OF EXAM: 04/18/2021 CLINICAL HISTORY: Neck pain. TECHNIQUE: Fluoroscopy. COMPARISON: None. FINDINGS: Fluoroscopic guidance was provided during pain relief procedure performed by Dr. Lee . A total of 16 seconds of fluoroscopic time was utilized during the procedure and 5 spot images are a cquired. Images acquired shows needle localization at multiple levels in the cervical spine. IMPRESSION: As Above.
[2021-04-18 08:47] VITALS: BP 114/69; PULSE 81
--- NOTE | 2021-04-21 11:11 | P.PCN ---
Date of Procedure: 04/18/21 Description of Procedure: PREOPERATIVE DIAGNOSIS: Cervicalgia POSTOPERATIVE DIAGNOSIS: Same Surgeon: Andre Lee M.D. PROCEDURE PERFORMED: Cervical Medial Branch Radiofrequency Ablation, at the following levels: left C2-C3 C3-C4 ANESTHESIA: Lidocaine 1% 5 mL, Monitored anesthesia care with anesthesia team ESTIMATED BLOOD LOSS: Minimal Fluoroscopy was used for the procedure and images were saved in the radiology portion of the chart. PROCEDURE INDICATION: The patient with neck pain secondary to cervical facet arthropathy who had more than 50% relief of pain with previous diagnostic lumbar medial branch block X2. PROCEDURE DESCRIPTION / TECHNIQUE: The patient was seen and identified in the preoperative area. Risks, benefits, complications, including but not limited to risk of infection ,bleeding , allergic reactions to the medications and incomplete pain relief , and alternatives were discussed with the patient, the patient agreed to proceed with the procedure and signed the consent. IV was started. The operative site was marked. Patient was taken to the OR and time out was completed. The patient was placed in the prone position on the procedure table. The lumbar area was prepped and draped in the usual sterile fashion. . Vital signs were closely monitored during the procedure .IV sedation was used during the procedure to decrease patients anxiety. An AP fluoroscopic electrical electronics engineer film was taken to identify the dens, the C2 C3 C4 vertebral bodies, and the waists of the articular pillars at the aforementioned levels. A pillar (caudal tilt) view was utilized to highlight the waists of the articular pillars at these levels. The skin was prepped with chlorhexidine and draped in the usual sterile fashion. The skin and subcutaneous tissue overlying the above levels were anesthetized using a 25-gauge 1-1/2-inch needle with 1% preservative free lidocaine for a total volume of 1 ml per level. An 18-gauge and 100 mm SMK needle with a 10 mm active tip was advanced, coaxially, in the pillar view until the needle tip was noted to slide into the groove of the articular pillar. A true lateral view was obtained and the needle tips were advanced to cover to the lateral aspect C2-3 joint line [TON], lateral aspect of the articular pillar at left C3 and C4, for corresponding medial branch ablation. The needles were advanced until bony contact was felt and the tip of the SMK needle was confirmed to be in the groove of the left C2-3 joint line, C3, C4 waist of the articular pillars at the aforementioned levels. The needle positions were confirmed with AP and lateral fluoroscopic views. Motor stimulation was then performed at 2 Hz and up to 2V with only paraspinal muscle contraction noted at each level and no upper extremity stimulation. At this point, after negative aspiration, Bupivacaine 0.5% x 0.5 mL was injected at each level prior to radiofrequency ablation. Lesioning was then carried out at 85 degrees Celsius times 90 seconds with 2 cycles per level. Following lesioning the needles were removed. COMPLICATIONS: No acute complications. DISPOSITION / PLANS: The patient was placed in a supine position and transferred to the recovery area in a stable condition for observation and was discharged from the recovery room after meeting discharge criteria. Home discharge instructions given to the patient by the staff. The patient will follow up in clinic in 4 weeks.
== END 2021-04-18 09:02 | disposition home or self-care (01) ==
LOC: ORPAIN 07:12
PROVIDERS: ATTEND Anesthesiology
DX: M47.812 Spondylosis without myelopathy or radiculopathy, cervical region (principal); I10 Essential (primary) hypertension; E78.5 Hyperlipidemia, unspecified; E11.9 Type 2 diabetes mellitus without complications; Z86.718 Personal history of other venous thrombosis and embolism; M19.90 Unspecified osteoarthritis, unspecified site; Z79.899 Other long term (current) drug therapy; Z79.82 Long term (current) use of aspirin
CPT/HCPCS: 64633; 64634; J2250; J2001; J3010; J2795

== ENCOUNTER → 2021-04-23 | Outpatient (CLI) | payer OTHER ==
--- NOTE | 2021-04-18 08:23 | P.PCN ---
Date of Procedure: 04/18/21 Description of Procedure: PREOPERATIVE DIAGNOSIS: Cervicalgia POSTOPERATIVE DIAGNOSIS: Same Surgeon: Andre Lee M.D. PROCEDURE PERFORMED: Cervical Medial Branch Radiofrequency Ablation, at the following levels: left C2-C3 C3-C4 ANESTHESIA: Lidocaine 1% 5 mL, Monitored anesthesia care with anesthesia team ESTIMATED BLOOD LOSS: Minimal Fluoroscopy was used for the procedure and images were saved in the radiology portion of the chart. PROCEDURE INDICATION: The patient with neck pain secondary to cervical facet arthropathy who had more than 50% relief of pain with previous diagnostic lumbar medial branch block X2. PROCEDURE DESCRIPTION / TECHNIQUE: The patient was seen and identified in the preoperative area. Risks, benefits, complications, including but not limited to risk of infection ,bleeding , allergic reactions to the medications and incomplete pain relief , and alternatives were discussed with the patient, the patient agreed to proceed with the procedure and signed the consent. IV was started. The operative site was marked. Patient was taken to the OR and time out was completed. The patient was placed in the prone position on the procedure table. The lumbar area was prepped and draped in the usual sterile fashion. . Vital signs were closely monitored during the procedure .IV sedation was used during the procedure to decrease patients anxiety. An AP fluoroscopic dividend clerk film was taken to identify the dens, the C2 C3 C4 vertebral bodies, and the waists of the articular pillars at the aforementioned levels. A pillar (caudal tilt) view was utilized to highlight the waists of the articular pillars at these levels. The skin was prepped with chlorhexidine and draped in the usual sterile fashion. The skin and subcutaneous tissue overlying the above levels were anesthetized using a 25-gauge 1-1/2-inch needle with 1% preservative free lidocaine for a total volume of 1 ml per level. An 18-gauge and 100 mm SMK needle with a 10 mm active tip was advanced, coaxially, in the pillar view until the needle tip was noted to slide into the groove of the articular pillar. A true lateral view was obtained and the needle tips were advanced to cover to the lateral aspect C2-3 joint line [TON], lateral aspect of the articular pillar at left C3 and C4, for corresponding medial branch ablation. The needles were advanced until bony contact was felt and the tip of the SMK needle was confirmed to be in the groove of the left C2-3 joint line, C3, C4 waist of the articular pillars at the aforementioned levels. The needle positions were confirmed with AP and lateral fluoroscopic views. Motor stimulation was then performed at 2 Hz and up to 2V with only paraspinal muscle contraction noted at each level and no upper extremity stimulation. At this point, after negative aspiration, Bupivacaine 0.5% x 0.5 mL was injected at each level prior to radiofrequency ablation. Lesioning was then carried out at 85 degrees Celsius times 90 seconds with 2 cycles per level. Following lesioning the needles were removed. COMPLICATIONS: No acute complications. DISPOSITION / PLANS: The patient was placed in a supine position and transferred to the recovery area in a stable condition for observation and was discharged from the recovery room after meeting discharge criteria. Home discharge instructions given to the patient by the staff. The patient will follow up in clinic in 4 weeks.
--- NOTE | 2021-04-23 16:03 | CTL ---
EXAMINATION TYPE: CT Low Dose Lung DATE OF EXAM ORDERED: 04/23/2021 HISTORY: History of tobacco use. Lung cancer screening CT DLP: 134.[address] CTDI: 3.7 mGy Automated exposure control for dose reduction was used. SCREENING VISIT: Initial COMPARISON: None TECHNIQUE: Low dose computed tomography scan was performed through the chest at 1 mm thick sections a nd reconstructed images in the coronal plane at [address] DIAGNOSTIC QUALITY: Satisfactory FINDINGS: LUNG NODULES: None. LUNGS: COPD: Severity: None Fibrosis: Severity: None Lymph nodes: None Other findings: None RIGHT PLEURAL SPACE: Effusion: None Calcification: None Thickening: None Pneumothorax: None LEFT PLEURAL SPACE: Effusion: None Calcification: None Thickening: None Pneumothorax: None HEART: Heart Size: Normal Coronary calcification: Moderate Pericardial effusion: None OTHER FINDINGS: Upper abdomen: Normal Bony thorax: Normal Supraclavicular region: Normal Other: Ascending thoracic aorta at the level the main pulmonary artery measures 3.8 cm. The main pul monary artery at the bifurcation measures 2.9 cm. IMPRESSION: 1. No suspicious changes to suggest malignancy. FOLLOW UP CT CHEST RECOMMENDATION: Low-dose CT chest one year CT LUNG RAD: Lung-Rad 1 Negative
== END | disposition home or self-care (01) ==
LOC: RADCTMAIN 09:19
DX: Z12.2 Encounter for screening for malignant neoplasm of respiratory organs (principal); Z87.891 Personal history of nicotine dependence
CPT/HCPCS: 71271

== ENCOUNTER → 2022-05-22 | Outpatient (CLI) | payer MEDICARE, OTHER ==
--- NOTE | 2022-05-22 10:14 | CTL ---
EXAMINATION TYPE: CT Low Dose Lung DATE OF EXAM ORDERED: 05/22/2022 HISTORY: 71-year-old male Z87.891 PERSONAL HISTORY OF NICOTINE DEPENDENCE; lung cancer screening CT DLP: 90.[address] CTDI: 2.60 mGy Automated exposure control for dose reduction was used. SCREENING VISIT: Annual follow-up COMPARISON: 04/23/2021 TECHNIQUE: Low dose computed tomography scan was performed through the chest with coronal and sagitta l reconstructions. CT DIAGNOSTIC QUALITY: Satisfactory FINDINGS: Heart upper limits of normal in size of pericardial effusion. LAD and circumflex coronary artery calc ifications are present. Ectatic ascending aorta 3.7 cm and upper descending thoracic aorta 3.2 cm. Without obvious chronic ar ch calcifications. Conventional branching anatomy. Scattered nonenlarged and borderline sized mediastinal lymph nodes measuring up to 1 cm lower left pa ratracheal, unchanged. Subcarinal node measures 1.0 cm. Biapical pleural-parenchymal scarring. Scattered centrilobular and paraseptal emphysema. Some hazy de pendent atelectasis is noted. No suspicious pulmonary nodules. No consolidation or pleural effusion. Some subpleural reticular change scattered throughout the lungs redemonstrated. This may reflect a co mponent of mild pulmonary fibrosis. Visualized upper abdomen shows pancreas calcifications compatible with chronic pancreatitis and low a ttenuation of the hepatic parenchyma suggesting fatty infiltration of the liver. Bones: Partially visualized ACDF hardware. Mild anterior endplate spondylosis lower thoracic spine. IMPRESSION: 1. Lung RADS 1, negative. No suspicious pulmonary nodules. 2. COPD with scattered mild emphysema. Recommend smoking cessation. Some scattered reticular changes are also present and could reflect a component of mild fibrosis. 3. CAD with LAD and circumflex coronary artery calcifications. 4. Hepatic steatosis and partially visualized changes of chronic pancreatitis. CT LUNG RAD AND CT CHEST RECOMMENDATION: Lung-Rad 1 Negative: Continue annual screening with LDCT in 12 months.
== END | disposition home or self-care (01) ==
LOC: RADCTMAIN 07:42
DX: Z12.2 Encounter for screening for malignant neoplasm of respiratory organs (principal); J43.9 Emphysema, unspecified; K76.0 Fatty (change of) liver, not elsewhere classified; Z87.891 Personal history of nicotine dependence
CPT/HCPCS: 71271

== ENCOUNTER → 2023-04-22 | Outpatient (CLI) | payer OTHER ==
--- NOTE | 2023-04-22 09:25 | US ---
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 FINDINGS: EXAM MEASUREMENTS: Liver Length: 19.5 cm Gallbladder: Surgically absent CBD: .8 cm Spleen: 10.4 cm Right Kidney: 10.1 x 5.1 x 4.8 cm Left Kidney: 12.9 x 6.1 x 4.5 cm Pancreas: Only a small portion of the pancreatic neck is seen. Head, body, and tail are obscured by bowel gas shadowing. Liver: Diffuse increased echogenicity with far field attenuation. This secondarily limits assessment for focal lesions. Gallbladder: Surgically absent Evidence for sonographic Castillo's sign: No CBD: Mildly dilated. Spleen: wnl Right Kidney: Lower pole limited by bowel gas shadowing. No hydronephrosis. Left Kidney: 8 mm echogenic focus at the lower pole. No hydronephrosis. Upper IVC: Limited due to bowel gas Abd Aorta: Proximal not well visualized due to bowel gas. IMPRESSION: 1. Mild hepatomegaly at 19.5 cm with severe hepatic steatosis. Correlate with LFTs, liver profile, an d patient risk factors. 2. Status post cholecystectomy. The bile duct is mildly dilated at 8 mm. However, this is acceptable given postcholecystectomy status. Clinically correlate. 3. 8 mm nonobstructive left renal calculus.
== END | disposition home or self-care (01) ==
LOC: RADUSWWP 07:24
DX: K76.0 Fatty (change of) liver, not elsewhere classified (principal); R16.0 Hepatomegaly, not elsewhere classified; N20.0 Calculus of kidney; Z90.49 Acquired absence of other specified parts of digestive tract
CPT/HCPCS: 76700

== ENCOUNTER → 2023-05-24 | Outpatient (CLI) | payer OTHER ==
--- NOTE | 2023-05-24 15:06 | CTL ---
EXAMINATION TYPE: CT Low Dose Lung DATE OF EXAM: 05/24/2023 1:53 PM CLINICAL INDICATION:Male, 72 years old with history of Z87.891; personal h/o tobacco use x45 years, f ormer smoker for 15 years , history of tobacco use. COMPARISON: 05/22/2022 TECHNIQUE: Multiple axial non-contrast scans were obtained from approximately the lung apices through the upper abdomen. Coronal and sagittal reformatted images were obtained. Low dose technique was uti lized. CT DLP: 101.9 mGycm, Automated exposure control for dose reduction was used. CT Contrast: Contrast used: None Oral contrast used: None FINDINGS: ======== Lack of intravenous contrast and low dose technique limits the evaluation of the vascular and soft ti ssue structures. LUNGS: No evidence of pulmonary fibrosis. No evidence of focal consolidation, pneumothorax or pleural effusion. Mild emphysema changes present. Nodules: RUL: None. RML: None. RLL: None. JEN: None. LLL: None. AIRWAY: Patent and unremarkable. Mild bronchiectasis noted. HEART: Size within normal limits. MEDIASTINUM: No gross evidence of adenopathy. VASCULATURE: Atherosclerotic calcifications are present throughout the aorta and its branches. MUSCULOSKELETAL: No acute osseous abnormalities SOFT TISSUES/LYMPH NODES: Unremarkable. LOWER NECK: No significant findings. UPPER ABDOMEN: Aortic stent graft partially visualized. Diffuse low-attenuation of the liver parenchy ma. IMPRESSION: 1. No pulmonary nodules. 2. Hepatic steatosis. 3. Coronary artery calcifications. 4. Mild COPD CT LUNG RAD AND CT CHEST RECOMMENDATION: Lung-Rad 1 Negative: Continue annual screening with LDCT in 12 months. S Modifier (other clinically significant findings): None Recommend smoking cessation (if current smoker), or continuation of smoking cessation (if prior smoke r). Annual screening for lung cancer with low-dose computed tomography is recommended in adults ages 55 to 77 years who have a 30 pack-year smoking history and currently smoke or have quit within the pa st 15 years. Screening should be discontinued once a person has not smoked for 15 years or develops a health problem that substantially limits life expectancy or the ability or willingness to have curat joselin lung surgery. Lung rads 2021 [email or web address]
== END | disposition home or self-care (01) ==
LOC: RADCTMAIN 13:02
DX: Z12.2 Encounter for screening for malignant neoplasm of respiratory organs (principal); K76.0 Fatty (change of) liver, not elsewhere classified; J44.9 Chronic obstructive pulmonary disease, unspecified; I25.84 Coronary atherosclerosis due to calcified coronary lesion; Z87.891 Personal history of nicotine dependence
CPT/HCPCS: 71271